=== PATIENT | male | born 1965 | race Caucasian/White ===

== ENCOUNTER → 2019-05-06 | Outpatient (CLI) | payer BC ==
--- NOTE | 2019-05-06 21:52 | REP ---
Clinical: Right knee pain. Recent trauma. Technique: AP, lateral, bilateral oblique and sunrise views. Findings: The osseous structures and joint spaces are intact and normal. There is no evidence for acute fracture or dislocation. No joint effusion is appreciated. Surrounding soft tissues are unremarkable. No subcutaneous emphysema or radiodense foreign body. Impression: Normal examination. No acute fracture or dislocation. Electronically Signed by Del Mendoza MD 05/06/2019 09:43 P
== END ==
LOC: M WUC 11:05
PROVIDERS: ATTEND Physician Assistant
DX: M25.561 Pain in right knee (principal)